=== PATIENT | male | born 1980 | race Caucasian/White ===

== ENCOUNTER 2018-09-12 19:40 | Emergency (ER) | payer BC ==
[~2018-09-12] VITALS: Ht 188 cm; Wt 104.3 kg
[~2018-09-12 19:40] MED LIST: NORCO 5-325 TA1 EACH ORAL; ONDANSETRON ODT4 MG ORAL; ZOFRAN4 M1 ORAL
[2018-09-12] MEDS ORDERED: LEXAPRO20 MG ORAL (19:53)
[2018-09-12 20:00] VITALS: BP 119/83
--- NOTE | 2018-09-12 20:00 | NUR ---
ED Nurse Note: PT walked into ER stating that he had surgery on his R arm after it was broken. pt is here for pain managment for R arm. pain is 9/10 pain that does not radiate.
[2018-09-12] MEDS ORDERED: HYDROcodone/Acetamin 10/325 tab ORAL ONE (20:30)
--- NOTE | 2018-09-12 20:35 | NUR ---
ED Nurse Note: patient refused [place], stating that the medicine "gives him stoumach issues". DELIA Elkins notified and aware, will wait after xray to administer medication
[2018-09-12] MEDS ORDERED: oxyCODONE HCL/Acetaminophen 5/325mg ORAL ONE (21:30)
[2018-09-12 21:40] VITALS: BP 117/80
[2018-09-12 21:44] VITALS: BP 117/80
--- NOTE | 2018-09-12 21:44 | NUR ---
ED Nurse Note: Pt is cleared by Health Care Provider for discharge. DC instructions/prescription was given and explained to pt and verbalized understanding of teachings given. All medical devices such as ID band removed. Pt AAO x4, ambulatory and left with all personal belongings.
--- NOTE | 2018-09-12 23:18 | Emergency Room Report ---
History of Present Illness General Chief Complaint: Pain Source: Patient (SEVERO ABDULLAHI) Present Illness HPI The patient is a 38 old male presenting for right forearm pain. He states that he had ORIF done last year which was successful. He states that he went bowling approximately one week prior and pain has returned. It is described as a 10 out of 10 dull ache to the right mid forearm. Worse with movement and touch. Does not radiate. He has been using [place] which only slightly helps. He states that he has an appointment with his primary doctor tomorrow and an appointment with orthopedics later in the week. He denies other symptoms including N, V, F, chills, numbness, rash (SEVERO ABDULLAHI) Allergies: Coded Allergies: No Known Allergies (Unverified , 10/30/15) Patient History Past Medical History: see triage record Pertinent Family History: none Reviewed Nursing Documentation: PMH: Agreed; PSxH: Agreed (SEVERO ABDULLAHI) Nursing Documentation-PMH Hx Gastrointestinal Problems: Yes - ulcerative colitis (SEVERO ABDULLAHI.Marylu) Review of Systems All Other Systems: negative except mentioned in HPI (SEVERO ABDULLAHI.Marylu) Physical Exam Vital Signs Date Time Temp Pulse Resp B/P (MAP) Pulse Ox O2 Delivery O2 Flow Rate FiO2 09/12/18 19:47 98.1 63 14 119/83 99 Room Air Sp02 EP Interpretation: reviewed, normal General Appearance: no apparent distress, alert, GCS 15, non-toxic Head: normocephalic, atraumatic Musculoskeletal: normal range of motion, tender - TTP over the R mid forearm Neurologic: alert, oriented x3, responsive, motor strength/tone normal, sensory intact, speech normal Psychiatric: judgement/insight normal, memory normal, mood/affect normal, no suicidal/homicidal ideation Skin: normal color, no rash, warm/dry, well hydrated (SEVERO ABDULLAHI P.AJailyn) Procedures Splinting Splinting : Consent: Verbal Location: R arm Pre-Made Type: sling Pre-Proc Neuro Vasc Exam: normal Post-Proc Neuro Vasc Exam: normal Patient Tolerated: Well Complications: None (SEVERO ABDULLAHI.AJailyn) Medical Decision Making PA Attestation Dr. Van is my supervising physician. Patient management was discussed with my supervising physician (SEVERO ABDULLAHI) Diagnostic Impression: Primary Impression: Right forearm pain ER Course The patient is a 38 old male presenting for right forearm pain. Ddx considered include but not limited to contusion, sprain, fracture, hardware failure, osteomyelitis, among others PE: NAD There is times to palpation over the right mid ulna. No deformity. Full active range of motion of elbow and wrist intact. Sensation intact Cures report checked. Patient received 30 [place] on September 06. X-ray of the right forearm shows no acute findings. Hardware in place. Right arm is placed in sling. He is given one dose of pain medication in the emergency department and is discharged home. He states that he has appointment with his primary doctor tomorrow. He is given information regarding orthopedic follow-up if needed. ER precautions given (SEVERO ABDULLAHI) Other X-Ray Diagnostic Results Other X-Ray Diagnostic Results : X-Ray ordered: R Forearm # of Views/Limited Vs Complete: 2 View Indication: Pain EP Interpretation: Yes PA Xray: Interpretation reviewed, by supervising MD, and agrees with findings. Interpretation: no dislocation, no soft tissue swelling, other - hardware in place Impression: No acute disease Electronically Signed by: Severo Abdullahi PA-C (SEVERO ABDULLAHI) Other X-Ray Diagnostic Results : Electronically Signed by: DELIA documentation reviewed by me and is accurate, Clya Van MD (Clay Van MD) Last Vital Signs Date Time Temp Pulse Resp B/P (MAP) Pulse Ox O2 Delivery O2 Flow Rate FiO2 09/12/18 21:44 98.1 65 14 117/80 99 Room Air Status: improved (SEVERO ABDULLAHI PJailynAJailyn) Disposition: HOME, SELF-CARE Condition: Improved [facility] 24 hour /7 days a week by Appointment Only [address] [address] Patient Instructions: Forearm Fracture Additional Instructions: I discussed my findings with the patient. All questions and concerns have been answered. Treatment and medication compliance have been addressed. I advised the patient that they need to follow up with orthopedics as soon as possible. Return to ED if pain remains or worsens, numbness or tingling occurs, new rash is noticed, fever is noticed, or if needed for any reason. Patient verbalized understanding of discharge instructions. SEVERO ABDULLAHI Sep 12, 2018 23:18 Clay Van MD Sep 13, 2018 19:51
--- NOTE | 2018-09-13 13:58 | Diagnostic Imaging Report ---
Indication: Forearm painPain Findings: 2 views of the right forearm were obtained. No acute fracture demonstrated. There is a ulnar styloid ununited fracture. There is a mid ulna compression plate and screws. IMPRESSION: No acute injury appreciated
== END 2018-09-12 21:44 | disposition home or self-care (01) ==
LOC: EMR 20:25
DX: M79.631 Pain in right forearm (principal); Z98.890 Other specified postprocedural states
CPT/HCPCS: 99283

== ENCOUNTER 2019-09-03 18:10 | Emergency (ER) | payer BC ==
[~2019-09-03] VITALS: Ht 188 cm; Wt 99.8 kg
[~2019-09-03 18:10] MED LIST changes: +LEXAPRO20 MG ORAL
[2019-09-03 18:30] VITALS: BP 114/80
--- NOTE | 2019-09-03 18:30 | NUR ---
ED Nurse Note: Pt walked into ED w/ c/o SOB stating that he feels like he's taking shallow breaths since 5 hours ago. Pt also has dizziness and pressure in head. He denies pain. Pt lungs sounds clear bilaterally. Pt alert and oirientedx4, ambulatory.
--- NOTE | 2019-09-03 19:19 | NUR ---
ED Nurse Note: ER PA with patient.
--- NOTE | 2019-09-03 19:29 | NUR ---
ED Nurse Note: Received report from CHRISTINE Jay.
--- NOTE | 2019-09-03 19:43 | NUR ---
ED Nurse Note: Blood drawn and sent to lab
[2019-09-03 19:58] LABS: HEMATOCRIT 48.9 % (42.0-52.0); HEMOGLOBIN 17.3 G/DL (14.2-18.0); MEAN CORPUSCULAR VOLUME 89 FL (80-99); PLATELET COUNT 346 K/UL (150-450); RED BLOOD COUNT 5.52 M/UL (4.70-6.10); RED CELL DISTRIBUTION WIDTH 12.3 % (11.6-14.8)
[2019-09-03 20:21] LABS: WHITE BLOOD COUNT 23.1 K/UL (4.8-10.8)
[2019-09-03 20:38] LABS: ANION GAP 9 mmol/L (5-15); BLOOD UREA NITROGEN 15 mg/dL (7-18); CALCIUM 9.7 MG/DL (8.5-10.1); CARBON DIOXIDE 30 MMOL/L (21-32); CHLORIDE 101 MMOL/L (98-107); CREATININE 1.1 MG/DL (0.55-1.30); POTASSIUM 4.3 MMOL/L (3.5-5.1); SODIUM 140 MMOL/L (136-145)
[2019-09-03 20:42] LABS: ALANINE AMINOTRANSFERASE 39 U/L (12-78); ALBUMIN 4.4 G/DL (3.4-5.0); ALBUMIN/GLOBULIN RATIO 1.1 (1.0-2.7); ALKALINE PHOSPHATASE 62 U/L (46-116); ASPARTATE AMINO TRANSFERASE 20 U/L (15-37); BILIRUBIN,TOTAL 0.4 MG/DL (0.2-1.0)
--- NOTE | 2019-09-03 20:55 | NUR ---
ED Nurse Note: ERMD at bedside.
--- NOTE | 2019-09-03 21:07 | Emergency Room Report ---
History of Present Illness General Chief Complaint: Flu Like Symptoms Source: Patient Present Illness HPI 39 yo male presents to the ED c/o left sided 11/12 in severity CP and feeling SOB x 2 hours. He reports he is not currently having pain at this moment. He has been experiencing dizziness, disorientation and night sweats x 2 weeks. He self d/c'd form tamiflu as it was giving him psychological side effects. he was dx'd with Influenza Type A. He reports being rx'd Klonopin for anxiety after being evaluated at urgent care earlier today. Pt. is concerned there is something more going on and wants to be evaluated. Pt. with hx of depression after being dx'd with colitis. He is currently taking Lexapro. Was previously on Remicade but not anymore. Denies palpitations, N/V, visual changes, auditory changes, neck pain/stiffness. Denies recent travel. Allergies: Coded Allergies: No Known Allergies (Unverified , 10/30/15) Patient History Past Medical History: see triage record, psych hx, other - colitis Past Surgical History: none Pertinent Family History: none Immunizations: other - did not receive flu vaccination this year. Reviewed Nursing Documentation: PMH: Agreed; PSxH: Agreed Nursing Documentation-PMH Past Medical History: No Stated History Hx Gastrointestinal Problems: Yes - ulcerative colitis Review of Systems All Other Systems: negative except mentioned in HPI Physical Exam Vital Signs Date Time Temp Pulse Resp B/P (MAP) Pulse Ox O2 Delivery O2 Flow Rate FiO2 09/03/19 18:15 98.1 79 19 109/80 (90) 97 Room Air 09/03/19 18:30 99 Sp02 EP Interpretation: reviewed, normal General Appearance: no apparent distress, alert, GCS 15, non-toxic Head: normocephalic, atraumatic Eyes: bilateral eye normal inspection, bilateral eye PERRL, bilateral eye other - no photophobia ENT: hearing grossly normal, normal voice Neck: full range of motion, no meningismus, no bony tend Respiratory: lungs clear, normal breath sounds, no wheezing, speaking full sentences Cardiovascular #1: regular rate, rhythm Cardiovascular #2: 2+ dorsalis pedis (L) Gastrointestinal: non tender, soft Genitourinary: normal inspection, no CVA tenderness Musculoskeletal: back normal, normal range of motion, gait/station normal, non- tender Neurologic: alert, motor strength/tone normal, oriented x3, sensory intact, responsive, speech normal, grossly normal Psychiatric: judgement/insight normal Skin: no rash, normal color Medical Decision Making PA Attestation Dr. Serrano is my supervising Physician whom patient management has been discussed with. Diagnostic Impression: Primary Impression: Leukocytosis Qualified Codes: D72.829 - Elevated white blood cell count, unspecified Additional Impression: Influenza A ER Course 39 yo male presents to the ED c/o left sided 11/12 in severity CP and feeling SOB x 2 hours. He reports he is not currently having pain at this moment. He has been experiencing dizziness, disorientation and night sweats x 2 weeks. He self d/c'd form tamiflu as it was giving him psychological side effects. he was dx'd with Influenza Type A. He reports being rx'd Klonopin for anxiety after being evaluated at urgent care earlier today. Pt. is concerned there is something more going on and wants to be evaluated. Pt. with hx of depression after being dx'd with colitis. He is currently taking Lexapro. Was previously on Remicade but not anymore. Denies palpitations, N/V, visual changes, auditory changes, neck pain/stiffness. Denies recent travel. Ddx considered but are not limited to URI, pneumonia, PE, strep pharyngitis, meningitis, influenza, encephalitis, medication SE, OM/OE just to name a few. Vital signs: Pt. is afebrile, the remaining VS are WNL H&PE are most consistent with Viral Syndrome suspicious for Influenza will treat clinically - no meningeal signs, Lungs are clear and oropharynx is not involved, no evidence of bacterial infection at this time. ORDERS: -CBC: 23.3 WBC elevated -CMP: WNL - Troponin: 0.00 WNL - CT Head non contrast: WNL -CXR: WNL ED INTERVENTIONS: -1 Liter NS Bolus IV x 2 --PT. EDUCATION: -- Conservative treatment and Critical need to repeat CBC in 3- 5 days to monitor his leukocytosis. D/w pt. close PCP follow up as outpatient but to return promptly to the ED if he experiences worsening of his current symptoms or development of new symptoms. DISCHARGE: At this time pt. is stable for d/c to home. Will provide printed patient care instructions, and any necessary prescriptions. Care plan and follow up instructions have been discussed with the patient prior to discharge. Labs Test 09/03/19 19:42 White Blood Count 23.1 K/UL (4.8-10.8) Red Blood Count 5.52 M/UL (4.70-6.10) Hemoglobin 17.3 G/DL (14.2-18.0) Hematocrit 48.9 % (42.0-52.0) Mean Corpuscular Volume 89 FL (80-99) Mean Corpuscular Hemoglobin 31.3 PG (27.0-31.0) Mean Corpuscular Hemoglobin Concent 35.3 G/DL (32.0-36.0) Red Cell Distribution Width 12.3 % (11.6-14.8) Platelet Count 346 K/UL (150-450) Mean Platelet Volume 6.4 FL (6.5-10.1) Neutrophils (%) (Auto) % (45.0-75.0) Lymphocytes (%) (Auto) % (20.0-45.0) Monocytes (%) (Auto) % (1.0-10.0) Eosinophils (%) (Auto) % (0.0-3.0) Basophils (%) (Auto) % (0.0-2.0) Differential Total Cells Counted 100 Neutrophils % (Manual) 78 % (45-75) Lymphocytes % (Manual) 18 % (20-45) Monocytes % (Manual) 2 % (1-10) Eosinophils % (Manual) 1 % (0-3) Basophils % (Manual) 1 % (0-2) Band Neutrophils 0 % (0-8) Platelet Estimate Adequate Platelet Morphology Normal Sodium Level 140 MMOL/L (136-145) Potassium Level 4.3 MMOL/L (3.5-5.1) Chloride Level 101 MMOL/L (98-107) Carbon Dioxide Level 30 MMOL/L (21-32) Anion Gap 9 mmol/L (5-15) Blood Urea Nitrogen 15 mg/dL (7-18) Creatinine 1.1 MG/DL (0.55-1.30) Estimat Glomerular Filtration Rate > 60 mL/min (>60) Glucose Level 99 MG/DL (74-106) Calcium Level 9.7 MG/DL (8.5-10.1) Total Bilirubin 0.4 MG/DL (0.2-1.0) Aspartate Amino Transf (AST/SGOT) 20 U/L (15-37) Alanine Aminotransferase (ALT/SGPT) 39 U/L (12-78) Alkaline Phosphatase 62 U/L (46-116) Troponin I 0.000 ng/mL (0.000-0.056) Total Protein 8.4 G/DL (6.4-8.2) Albumin 4.4 G/DL (3.4-5.0) Globulin 4.0 g/dL Albumin/Globulin Ratio 1.1 (1.0-2.7) EKG Diagnostic Results Rate: normal - 68 Rhythm: NSR ST Segments: no acute changes ASA given to the pt in ED: No PA Scribe Text This Interpretation was scribed by DELIA Dumont. Chest X-Ray Diagnostic Results Chest X-Ray Diagnostic Results : Chest X-Ray Ordered: Yes # of Views/Limited/Complete: 1 View Indication: Chest Pain EP Interpretation: Yes PA Xray: Interpretation reviewed, by supervising MD, and agrees with findings. Interpretation: no consolidation, no effusion, no pneumothorax Impression: No acute disease Electronically Signed by: Agnes Dumont PA-C CT/MRI/US Diagnostic Results CT/MRI/US Diagnostic Results : Imaging Test Ordered: CT Head No Contrast Impression " No evidence of acute fracture, hemorrhage, or intracranial process" . Per official radiology report- Please see report for specific details. Last Vital Signs Date Time Temp Pulse Resp B/P (MAP) Pulse Ox O2 Delivery O2 Flow Rate FiO2 09/03/19 18:30 98.1 20 114/80 99 Room Air 09/03/19 18:30 83 99 Disposition: HOME, SELF-CARE Condition: Stable Referrals: NON PHYSICIAN (PCP) Patient Instructions: Influenza, Adult, [id number], Leukocytosis Additional Instructions: REPEAT BLOOD WORK 3-5 DAYS Take any previously prescribed medications as directed. Follow up with a Primary Care Provider in 3-5 days, even if your symptoms have resolved. --Please review list of primary care clinics, if you do not already have a primary care provider Return sooner to ED if new symptoms occur, or current symptoms become worse. - Please note that this Emergency Department Report was dictated using [employer] shear operator technology software, occasionally this can lead to erroneous entry secondary to interpretation by the dictation equipment. Agnes Dumont Sep 03, 2019 21:07
--- NOTE | 2019-09-03 21:28 | NUR ---
ED Nurse Note: Xray at bedside
--- NOTE | 2019-09-03 21:45 | Diagnostic Imaging Report ---
EXAM: CT Head Without Intravenous Contrast CLINICAL HISTORY: PAIN TECHNIQUE: Axial computed tomography images of the head/brain without intravenous contrast. CTDI is 62.7 mGy and DLP is 1346.1 mGy-cm. One or more of the following dose reduction techniques were used: automated exposure control, adjustment of the mA and/or kV according to patient size, use of iterative reconstruction technique. COMPARISON: No relevant prior studies available. FINDINGS: Brain: No hemorrhage, extra-axial fluid collection, mass effect, or edema. No grossly evident acute ischemic infarct. Bones/joints: Unremarkable. No acute fracture. Soft tissues: Unremarkable. Sinuses: Unremarkable as visualized. Mastoid air cells: Unremarkable as visualized. No mastoid effusion. IMPRESSION: 1. No acute intracranial abnormality.
--- NOTE | 2019-09-03 21:56 | Diagnostic Imaging Report ---
EXAM: XR Chest, 1 View CLINICAL HISTORY: PAIN TECHNIQUE: Frontal view of the chest. COMPARISON: No relevant prior studies available. FINDINGS: Lungs: Unremarkable. No consolidation. Pleural space: No pleural effusion. No pneumothorax. Heart: Unremarkable. No cardiomegaly. IMPRESSION: No acute cardiopulmonary abnormality.
[2019-09-03 22:24] VITALS: BP 122/82
--- NOTE | 2019-09-03 22:24 | NUR ---
ER DISCHARGE NOTE: Patient is cleared to be discharged per ERMD, pt is aox4, on room air, with stable vital signs. pt was given dc instructions, pt was able to verbalize understanding, pt id band and iv site removed without complications. pt is able to ambulate with steady gait. pt took all belongings. pt stable upon discharge.
== END 2019-09-03 22:24 | disposition home or self-care (01) ==
LOC: EMR 18:41
DX: D72.829 Elevated white blood cell count, unspecified (principal); J09.X2 Influenza due to identified novel influenza A virus with other respiratory manifestations
CPT/HCPCS: 36415; 70450; 71045; 80053; 84484; 85007; 85025; 93005; 96360; 99284